=== PATIENT | male | born 1965 | race African-American/Black ===

== ENCOUNTER 2017-10-17 01:21 | Emergency (ER) | payer OTHER ==
[~2017-10-17] VITALS: Ht 172.7 cm; Wt 118.0 kg
[2017-10-17 02:35] VITALS: BP 119/78
== END 2017-10-17 02:49 | disposition home or self-care (01) ==
LOC: ER 01:21
DX: G40.909 Epilepsy, unspecified, not intractable, without status epilepticus (principal); E11.9 Type 2 diabetes mellitus without complications; F84.0 Autistic disorder
CPT/HCPCS: 99283

== ENCOUNTER 2018-03-22 14:51 | Emergency (ER) | payer OTHER ==
[~2018-03-22] VITALS: Ht 177.8 cm; Wt 118.0 kg
[2018-03-22] MEDS ORDERED: SODIUM CHLORIDE 0.9% 1,000 ML IV ONE (16:07)
[2018-03-22 17:11] LABS: BASOPHILS % 0.3 % (0.0-2.0); EOSINOPHILS % 0.2 % (0.0-5.0); HEMATOCRIT. 42.7 % (42.0-52.0); HEMOGLOBIN. 14.6 g/dL (14.0-18.0); LYMPHOCYTES % 8.6 % (20.0-50.0); MEAN CORPUSCULAR HEMOGLOBIN 30.7 pg (28.0-32.0); MEAN CORPUSCULAR VOLUME 90.2 fL (80.0-94.0); MEAN PLATELET VOLUME 7.7 fl (7.4-10.4); MONOCYTES % 10.7 % (2.0-8.0); NEUTROPHILS % 80.2 % (40.0-76.0); PLATELET 254 x1000/uL (130-400); RED BLOOD CELL COUNT 4.74 mill/uL (4.7-6.1)
[2018-03-22 17:21] LABS: CHLORIDE 103 mEq/L (98-107)
[2018-03-22 17:32] LABS: CARBAMAZEPINE 5.4 ug/mL (4-12)
[2018-03-22 17:44] LABS: VALPROIC ACID < 3.0 ug/mL (50-100)
[2018-03-22 19:22] LABS: CLARITY URINE CLOUDY (CLEAR); COLOR URINE YELLOW (YELLOW); KETONES URINE TRACE (NEGATIVE); LEUKOCYTE ESTERASE URINE NEGATIVE (NEGATIVE); NITRITE URINE NEGATIVE (NEGATIVE); OCCULT BLOOD URINE NEGATIVE (NEGATIVE); PROTEIN URINE 2+ (NEGATIVE); SPECIFIC GRAVITY URINE 1.021 (1.005-1.030); UROBILINOGEN URINE 0.2 E.U./dL (0.2-1.0)
[2018-03-22 19:34] VITALS: BP 168/87
== END 2018-03-22 20:10 | disposition home or self-care (01) ==
LOC: ER 14:51
DX: G40.909 Epilepsy, unspecified, not intractable, without status epilepticus (principal); M25.552 Pain in left hip; E11.9 Type 2 diabetes mellitus without complications; F20.9 Schizophrenia, unspecified; R62.50 Unspecified lack of expected normal physiological development in childhood; F84.0 Autistic disorder
CPT/HCPCS: 36415; 70450; 73502; 80053; 80156; 80165; 81003; 83690; 85025; 99284; J7030

== ENCOUNTER 2024-08-01 15:27 | Emergency (ER) | payer OTHER ==
[~2024-08-01] VITALS: Ht 172.7 cm; Wt 87.0 kg
[2024-08-01 15:29] VITALS: TEMP 36.8; O2SAT 100
[2024-08-01 16:04] LABS: HEMATOCRIT. 39.4 % (42.0-52.0); HEMOGLOBIN. 12.7 g/dL (14.0-18.0); MEAN CORPUSCULAR HGB CONC 32.3 g/dL (31.0-37.0); MEAN CORPUSCULAR VOLUME 89.7 fL (80.0-94.0); MEAN PLATELET VOLUME 7.7 fl (7.4-10.4); PLATELET 203 x1000/uL (130-400); RED BLOOD CELL COUNT 4.39 mill/uL (4.7-6.1); RED CELL DISTRIBUTION WIDTH 14.7 % (11.6-14.6)
[2024-08-01 16:08] LABS: DIFFERENTIAL COMMENT 1
[2024-08-01 16:11] LABS: CHLORIDE 106 mEq/L (98-107); POTASSIUM 3.6 mEq/L (3.5-5.1); SODIUM 141 mEq/L (136-145)
[2024-08-01 16:12] LABS: CARBON DIOXIDE 30 mEq/L (21-32)
[2024-08-01 16:13] LABS: CALCIUM 9.1 mg/dL (8.7-10.4)
[2024-08-01 16:17] LABS: CREATININE 1.1 mg/dL (0.6-1.3); GLUCOSE 100 mg/dL (70-105); UREA NITROGEN BLOOD 11 mg/dL (9-23)
[2024-08-01 16:18] LABS: CARBAMAZEPINE 7.9 ug/mL (4-12)
[2024-08-01 16:31] LABS: PLATELET ESTIMATE NORMAL
[2024-08-01 16:54] VITALS: BP 143/61; PULSE 77; RESP 15; O2SAT 98
== END 2024-08-01 17:33 | disposition home or self-care (01) ==
LOC: ER 15:27
DX: G40.909 Epilepsy, unspecified, not intractable, without status epilepticus (principal); E11.9 Type 2 diabetes mellitus without complications
CPT/HCPCS: 80048; 80156; 85025; 36415; 99284; Z7610